=== PATIENT | female | born 1995 | race African-American/Black ===

== ENCOUNTER 2022-04-10 11:30 | Emergency (ER) | payer SELFPAY ==
[2022-04-10 11:33] VITALS: BP 132/71; PULSE 83; RESP 16; TEMP 36.6; O2SAT 100; BMI 22.6
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
--- NOTE | 2022-04-10 11:51 | XRR_ITS ---
PROCEDURE INFORMATION: Exam: XR Left Shoulder Exam date and time: 04/10/2022 11:57 AM Age: 27 years old Clinical indication: Pain; Shoulder; Left; Additional info: Shoulder pain TECHNIQUE: Imaging protocol: Radiologic exam of the Left shoulder. Views: 2 or more views. COMPARISON: No relevant prior studies available. FINDINGS: Bones/joints: Normal. Soft tissues: Normal. XR/XR shoulder LT min 2V* [id number] IMPRESSION: No acute findings.
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
--- NOTE | 2022-04-10 11:51 | XRR_ITS ---
PROCEDURE INFORMATION: Exam: XR Right Hip Exam date and time: 04/10/2022 11:57 AM Age: 27 years old Clinical indication: Hip pain; Right hip TECHNIQUE: Imaging protocol: Radiologic exam of the Right hip. Views: 1 view hip with pelvis when performed. COMPARISON: No relevant prior studies available. FINDINGS: Bones/joints: Unremarkable. No acute fracture. Soft tissues: Unremarkable. XR/XR hip RT 2-3V wo/w pel* [id number] IMPRESSION: No acute findings.
[2022-04-10] MEDS: acetaminophen 500 mg Tablet PO (12:01)
[2022-04-10] MEDS: tetanus-dipt-pertussis 0.5 mL SDV IM (12:02)
== END 2022-04-10 13:37 | disposition home or self-care (01) ==
PROVIDERS: Emergency Provider Emergency Medicine
DX: S00.83XA Contusion of other part of head, initial encounter (principal); S40.012A Contusion of left shoulder, initial encounter; Y35.93XA Legal intervention, means unspecified, suspect injured, initial encounter; Z23 Encounter for immunization
CPT/HCPCS: 70450; 70486; 73030; 73502; 90471; 90715; 99284